=== PATIENT | female | born 1985 | race Caucasian/White ===

== ENCOUNTER 2019-09-02 04:38 | Emergency (ER) | payer BC, OTHER ==
[~2019-09-02] VITALS: Ht 162.6 cm; Wt 99.5 kg
[2019-09-02 04:45] VITALS: BP 141/104
[2019-09-02] MEDS ORDERED: guaiFENesin/CODEINE 100mg/10mg 5 ML LIQUID PO PRN (05:00)
[2019-09-02] MEDS ORDERED: guaiFENesin/CODEINE 100mg/10mg 5 ML LIQUID ONE (05:00)
--- NOTE | 2019-09-02 05:05 | PHYS DOC ---
Adult General HPI HPI Patient is a 34-year-old female that presents with a chief complaint of sore throat cough without sputum production fever and myalgias 3 days. Patient has been taking ibuprofen with minimal relief. Patient without any nausea vomiting diarrhea. Review of Systems Review of Systems Constitutional: Positive fever Eyes: Denies change in visual acuity, redness, or eye pain [] HENT: Denies nasal congestion positive sore throat [] Respiratory: Positive cough no shortness of breath [] Cardiovascular: No additional information not addressed in HPI [] GI: Denies abdominal pain, nausea, vomiting, bloody stools or diarrhea [] : Denies dysuria or hematuria [] Musculoskeletal: Positive muscle aches Integument: Denies rash or skin lesions [] Neurologic: Denies headache, focal weakness or sensory changes [] Endocrine: Denies polyuria or polydipsia [] All other systems were reviewed and found to be within normal limits, except as documented in this note. Current Medications Current Medications Current Medications Medications (Trade) Dose Ordered Sig/Jose Luis Start Time Stop Time Status Last Admin Dose Admin Guaifenesin/ Codeine Phosphate (Robitussin Ac) 5 ml STK-MED ONCE 09/02/19 05:00 09/02/19 05:00 DC Physical Exam Physical Exam Constitutional: Well developed, well nourished, no acute distress, non-toxic appearance. [] HENT: Normocephalic, atraumatic, bilateral external ears normal, oropharynx moist, no oral exudates, nose normal. [] Eyes: PERRLA, EOMI, conjunctiva normal, no discharge. [] Neck: Normal range of motion, no tenderness, supple, no stridor. [] Cardiovascular:Heart rate regular rhythm, no murmur [] Lungs & Thorax: Bilateral breath sounds clear to auscultation [] Abdomen: Bowel sounds normal, soft, no tenderness, no masses, no pulsatile masses. [] Skin: Warm, dry, no erythema, no rash. [] Back: No tenderness, no CVA tenderness. [] Extremities: No tenderness, no cyanosis, no clubbing, ROM intact, no edema. [] Neurologic: Alert and oriented X 3, normal motor function, normal sensory function, no focal deficits noted. [] Psychologic: Affect normal, judgement normal, mood normal. [] EKG EKG [] Radiology/Procedures Radiology/Procedures [] Course & Med Decision Making Course & Med Decision Making Pertinent Labs and Imaging studies reviewed. (See chart for details) []Patient was evaluated for chief complaint. Based upon history of present illness and physical exam no emergent lab or radiologic imaging performed. Patient likely viral illness probable flu. Patient outside Tamiflu treatment w indow. Patient advised to take Tylenol Motrin as needed for pain. Will write patient a prescription of Robitussin with codeine. Patient to follow up with primary care physician as needed. Dragon Disclaimer Dragon Disclaimer This electronic medical record was generated, in whole or in part, using a voice recognition dictation system. Departure Departure: Disposition: HOME/RESIDENCE PRIOR TO ADM Condition: STABLE Referrals: PCP,NO (PCP) SANCHEZ ACE DO Sep 02, 2019 05:05
[2019-09-02] MEDS ORDERED: GUAI120L35 PO (05:07)
[2019-09-02] MEDS ORDERED: AZIT250T PO (05:07)
== END 2019-09-02 05:14 | disposition home or self-care (01) ==
LOC: ER 04:38
DX: J02.9 Acute pharyngitis, unspecified (principal); R05 Cough; R50.9 Fever, unspecified; M79.10 Myalgia, unspecified site
CPT/HCPCS: 99282

== ENCOUNTER 2020-06-03 17:14 | Emergency (ER) | payer BC, OTHER ==
[~2020-06-03] VITALS: Ht 160 cm; Wt 102.0 kg
[~2020-06-03 17:14] MED LIST: AZIT250T PO; GUAI120L35 PO
[2020-06-03 17:32] VITALS: BP 150/89
[2020-06-03] MEDS ORDERED: ONDA4TAB12 PO (17:45)
[2020-06-03] MEDS ORDERED: ONDANSETRON ODT 4 MG TAB.RAPDIS PO ONE (17:45)
[2020-06-03] MEDS ORDERED: SUMA50TA3 PO (17:45)
[2020-06-03] MEDS ORDERED: KETOROLAC 60 MG/2 ML VIAL. IM ONE (17:45)
--- NOTE | 2020-06-03 17:45 | PHYS DOC ---
Past History Past Medical History: Migraines Additional Past Medical Histor: LEFT ARM SURGERY Past Surgical History: No Surgical History, Other Additional Past Surgical Histo: LEFT ARM SURGERY Alcohol Use: None Adult General Chief Complaint Chief Complaint: HEADACHE HPI HPI Patient is a 34-year-old female patient with history of migraine headaches presenting to the ED today complaining of 9 out of 10 throbbing frontal migraine headache that began 5 hours ago with nausea and no vomiting. Patient states this headache is consistent with her normal migraine headaches. Denies this being the worst headache in her life. Denies any fever. She also reports photosensitivity. Review of Systems Review of Systems Constitutional: Denies fever or chills [] Eyes: Denies change in visual acuity, redness, or eye pain [] HENT: Denies nasal congestion or sore throat [] Respiratory: Denies cough or shortness of breath [] Cardiovascular: No additional information not addressed in HPI [] GI: Reports nausea. Denies abdominal pain, vomiting, bloody stools or diarrhea [] : Denies dysuria or hematuria [] Musculoskeletal: Denies back pain or joint pain [] Integument: Denies rash or skin lesions [] Neurologic: Reports migraine headache, denies focal weakness or sensory changes [] All other systems were reviewed and found to be within normal limits, except as documented in this note. Current Medications Current Medications Current Medications Medications (Trade) Dose Ordered Sig/Jose Luis Start Time Stop Time Status Last Admin Dose Admin Ketorolac Tromethamine (Toradol Im) 60 mg 1X ONCE 06/03/20 17:45 06/03/20 17:46 UNV Ondansetron HCl (Zofran Odt) 4 mg 1X ONCE 06/03/20 17:45 06/03/20 17:46 UNV Allergies Allergies Allergies Coded Allergies Type Severity Reaction Last Updated Verified No Known Drug Allergies 09/02/19 No Physical Exam Physical Exam Constitutional: Well developed, well nourished, no acute distress, non-toxic appearance. [] HENT: Normocephalic, atraumatic, bilateral external ears normal, oropharynx moist, no oral exudates, nose normal. [] Eyes: PERRLA, EOMI, conjunctiva normal, no discharge. [] Neck: Normal range of motion, no tenderness, supple, no stridor. [] Cardiovascular:Heart rate regular rhythm, no murmur [] Lungs & Thorax: Bilateral breath sounds clear to auscultation [] Abdomen: Bowel sounds normal, soft, no tenderness, no masses, no pulsatile masses. [] Skin: Warm, dry, no erythema, no rash. [] Back: No tenderness, no CVA tenderness. [] Extremities: No tenderness, no cyanosis, no clubbing, ROM intact, no edema. [] Neurologic: Alert and oriented X 3, normal motor function, normal sensory function, no focal deficits noted. Cranial nerves II through XII intact Psychologic: Affect normal, judgement normal, mood normal. [] Current Patient Data Vital Signs Vital Signs Date Time Temp Pulse Resp B/P (MAP) Pulse Ox O2 Delivery O2 Flow Rate FiO2 06/03/20 17:32 98.1 73 18 150/89 (109) 99 Room Air EKG EKG [] Radiology/Procedures Radiology/Procedures [] Heart Score Risk Factors: Risk Factors: DM, Current or recent (<one month) smoker, HTN, HLP, family history of CAD, obesity. Risk Scores: Risk Factors: DM, Current or recent (<one month) smoker, HTN, HLP, family history of CAD, obesity. Course & Med Decision Making Course & Med Decision Making Pertinent Labs and Imaging studies reviewed. (See chart for details) This is a 34-year-old female patient presenting to the ED today with a migraine headache for the last 5 hours. Migraine consistent with her normal migraines. There is nothing unusual today. She requested Toradol and Zofran. They were given to her. She was discharged to home. Follow-up with her PCP. Oskar Disclaimer Oskar Disclaimer This electronic medical record was generated, in whole or in part, using a voice recognition dictation system. Departure Departure: Impression: Primary Impression: Migraine headache Disposition: 01 DC HOME SELF CARE/HOMELESS Condition: STABLE Referrals: CHRISTOPH BAUGH follow up in one week Patient Instructions: Migraine Headache Additional Instructions: You were evaluated in the emergency room for migraine headaches. Follow-up with your primary care doctor or neurologist in 1 to 2 weeks. Come back to the ED at any point symptoms worsen. Scripts Ondansetron (ONDANSETRON ODT) 4 Mg Tab.rapdis 1 TAB PO PRN Q6-8HRS, #16 TAB Prov: CHRIS WINSLOW [employer] 06/03/20 Sumatriptan Succinate (IMITREX) 50 Mg Tablet 1 TAB PO UD, #9 TAB 1 Refill Prov: CHRIS WINSLOW APRN 06/03/20 Problem Qualifiers Primary Impression: Migraine headache Migraine type: without aura Status migrainosus presence: without status migrainosus Intractability: not intractable Qualified Codes: G43.009 - Migraine without aura, not intractable, without status migrainosus CHRIS WINSLOW APRN Jun 03, 2020 17:45
== END 2020-06-03 18:06 | disposition home or self-care (01) ==
LOC: ER 17:14
DX: G43.909 Migraine, unspecified, not intractable, without status migrainosus (principal)
CPT/HCPCS: 96372; 99283; J1885; Q0162